=== PATIENT | male | born 1965 | race Caucasian/White ===

== ENCOUNTER → 2018-06-14 | Outpatient (CLI) | payer OTHER ==
--- NOTE | 2018-06-22 06:31 | REP ---
Clinical: Follow up abnormal lung findings. Comparison: 04/18/2018 (outside examination) Technique: Axial noncontrast images from the thoracic inlet to the upper abdomen with coronal and sagittal re-formations. Findings: Mild COPD/emphysematous changes and interstitial changes are appreciated bilaterally including minimal scarring at the lingula and medial right middle lobe. The previously identified subtle areas of acute pneumonitis involving the periphery of the right lower lobe as well as the lingula have resolved. No acute consolidation. No nodule or mass lesion. No pleural effusion. No pneumothorax. Tracheobronchial tree is patent. No obvious adenopathy. Mediastinum demonstrates relatively normal thoracic aorta, pulmonary vasculature and heart/pericardium. Osseous structures are intact without focal abnormality. Limited upper abdomen demonstrates normal bilateral adrenal glands. Impression: 1. Mild chronic COPD and minimal scattered interstitial changes. 2. Previously identified subtle areas of pneumonitis have resolved. 3. No acute mediastinal or pleuroparenchymal process appreciated. Electronically Signed by Wojciech Mcarthur MD 06/22/2018 06:22 A
== END ==
LOC: M RAD 10:54
PROVIDERS: ATTEND Physician Assistant
DX: J44.1 Chronic obstructive pulmonary disease with (acute) exacerbation (principal)

== ENCOUNTER → 2018-10-18 | Outpatient (CLI) | payer OTHER ==
--- NOTE | 2018-10-18 09:23 | REP ---
Clinical: Abdominal aortic aneurysm. Technique: Real time dumont scale and color evaluation using curved array transducer. Findings: Extensive atheromatous plaquing noted throughout the abdominal aorta. Proximal aorta measures 2.8 x 2.4 cm maximal diameter. Mid aorta measures 2.3 x 3.2 cm maximal diameter. A partially thrombosed distal abdominal aortic aneurysm measures 4.0 x 4.7 cm maximal AP and transverse diameter and 7.0 cm in craniocaudal length. Residual patent central lumen measures 1.5 x 1.4 cm maximal diameter. The aneurysm's proximal neck and relationship to the renal arteries cannot be evaluated due to interposed bowel gas, but distally appears to taper smoothly with the right and left common iliac arteries measuring 1.2 x 0.8 cm and 1.1 x 0.9 cm respectively. Impression: 1. Partially thrombosed distal abdominal aortic aneurysm as described above. 2. Severe atheromatous plaquing throughout the visualized aorta. Electronically Signed by Wojciech Mcarthur MD 10/18/2018 09:14 A
== END ==
LOC: M RAD 08:27
PROVIDERS: ATTEND Physician Assistant
DX: I71.4 Abdominal aortic aneurysm, without rupture (principal)

== ENCOUNTER → 2018-12-13 | Outpatient (CLI) | payer OTHER ==
--- NOTE | 2018-12-13 14:01 | REP ---
Clinical: Follow up abnormal findings. Technique: Axial noncontrast images from the thoracic inlet to the upper abdomen with coronal and sagittal re-formations. Comparison: 06/14/2018, 04/18/2018 Findings: Mild COPD/emphysematous changes are again appreciated along with minimal subpleural right lower lobe and right middle lobe scarring which remains stable. Previously noted subtle infiltrates on 04/18/2018 have completely resolved. No acute consolidation, significant nodule or mass lesion. No effusion. No pneumothorax. Tracheobronchial tree is patent. No significant adenopathy. Mediastinum demonstrates normal thoracic aorta, pulmonary vasculature and heart/pericardium. Evidence of prior coronary stenting. Surrounding musculoskeletal structures are intact. Impression: Stable mild COPD/emphysematous changes and minimal scarring. No acute process. Electronically Signed by Wojciech Mcarthur MD 12/13/2018 01:52 P
== END ==
LOC: M RAD 12:15
PROVIDERS: ATTEND Internal Medicine Pulmonary Disease
DX: R91.8 Other nonspecific abnormal finding of lung field (principal)

== ENCOUNTER → 2019-04-26 | Outpatient (CLI) | payer OTHER ==
--- NOTE | 2019-04-27 09:17 | REP ---
Clinical: Screening for abdominal aortic aneurysm. Comparison: 10/18/2018 Technique: Real time dumont scale ultrasound examination using curved array transducer. Findings: Significant atherosclerotic changes are appreciated. Infrarenal abdominal aortic aneurysm measures approximately 3.5 x 3.6 cm diameter and 6.3 cm in craniocaudal length tapering to normal at the level of the bifurcations common iliac arteries. No periaortic fluid collection identified. Origin of the aneurysm in relation to the renal arteries is incompletely evaluated due to interposed bowel gas. Proximal aorta 2.1 x 2.0 cm. Mid aorta (renal artery level) 2.2 x 2.2 cm. Mid aorta 2.7 x 2.4 cm. Distal aorta 3.5 x 3.6 cm. Right common iliac artery 1.1 cm maximal diameter. Left common iliac artery 1.0 cm maximal diameter. Impression: Infrarenal abdominal aortic aneurysm similar to prior examination. Significant diffuse atherosclerotic changes. Electronically Signed by Wojciech Mcarthur MD 04/27/2019 09:08 A
== END ==
LOC: M RAD 07:33
PROVIDERS: ATTEND Physician Assistant
DX: I71.4 Abdominal aortic aneurysm, without rupture (principal)

== ENCOUNTER → 2019-12-01 | Outpatient (CLI) | payer OTHER ==
--- NOTE | 2019-12-01 07:43 | REP ---
INDICATION: AAA WITHOUT RUPTURE COMPARISON: 04/26/2019, 10/18/2018 TECHNIQUE: Real time dumont scale ultrasound examination using curved array transducer. FINDINGS: Atherosclerotic changes of the aorta are again noted along with aneurysmal dilatation to the distal aorta measuring 4 cm maximal diameter and 8.3 cm in craniocaudal length originating below the level of the renal arteries and tapering to normal before bifurcation the iliac arteries. Proximal aorta: 2.6 x 2.8 cm Aorta at renal arteries: 2.5 x 2.4 cm Mid aorta: 3.4 x 3.3 cm Distal aorta: 4.0 x 4.0 cm Right common iliac artery: 1.1 cm Left common iliac artery: 1.1 cm IMPRESSION: Abdominal aortic aneurysm as described above which may be slightly increased in diameter as compared to prior examination. <Electronically signed by Wojciech Mcarthur > 12/01/19 [id number]
== END ==
LOC: M RAD 06:16
PROVIDERS: ATTEND Physician Assistant
DX: I71.4 Abdominal aortic aneurysm, without rupture (principal)

== ENCOUNTER → 2019-12-28 | Outpatient (CLI) | payer OTHER ==
--- NOTE | 2019-12-28 14:10 | REP ---
INDICATION: ABN FINDINGS OF LUNG FIELD. COMPARISON: 12/13/2018, 06/14/2018, 04/18/2018 CT TECHNIQUE: Noncontrast CT chest with coronal and sagittal reconstructions provided FINDINGS: The lung cedeño are hyperinflated. A 7 mm pleural based calcified granulomas again seen on image 26 in the posterior right upper lobe. Some minor apical pleural scarring is again seen. No pleural based mass. There is a smaller posterior right upper lobe pleural-based nodule midclavicular line posteriorly on image 32 without calcification, also stable. Some minor curvilinear fibrotic change in the inferior lingular segment at the left lung base anteriorly. No effusion, acute infiltrate, new nodule or mass. Some mild cylindrical bronchiectatic changes noted. Heart is not enlarged. There is no pathologic sized mediastinal, hilar, axillary or supraclavicular adenopathy. Thyroid lobes are symmetric. Tracheal airway shows small amount of mucus on either side at the carlo. The bone windows show the sternum, manubrium, medial clavicles, visible portions of scapulae, humeral heads and ribs grossly intact. The spine shows no compression deformity or destructive lesion. Upper abdomen shows aneurysmal dilatation of the proximal abdominal aorta at 3.4 cm AP dimension on the last image. This is incompletely evaluated. There is no evidence of leak or paraspinal hematoma but again, this is limited study. The gallbladder, adrenal glands, upper poles of the kidneys and spleen were unremarkable. No visible hepatic finding. IMPRESSION: 1. Old granulomas in the right lung, pleural based. In the upper lobe and with some minor fibrotic changes, underlying COPD, pulmonary artery hypertension and some bronchiectasis noted. Essentially stable examination. 2. No pathologic sized adenopathy. The solid organs in the upper abdomen were intact. 3. Bones without acute finding. 4. The upper abdominal aorta is seen only in part and its infrarenal portion is seen enlarging with the last image in the field of view showing it is 3.4 cm in AP diameter, this represents aneurysmal dilatation. This will need further evaluation if not done already elsewhere. <Electronically signed by Dominguez Cortez > 12/28/19 [id number]
== END ==
LOC: M RAD 13:17
PROVIDERS: ATTEND Physician Assistant
DX: R91.8 Other nonspecific abnormal finding of lung field (principal); J84.10 Pulmonary fibrosis, unspecified; J44.9 Chronic obstructive pulmonary disease, unspecified; I27.20 Pulmonary hypertension, unspecified; I77.819 Aortic ectasia, unspecified site

== ENCOUNTER → 2020-05-31 | Outpatient (CLI) | payer OTHER ==
--- NOTE | 2020-05-31 11:14 | REP ---
INDICATION: ABDOMINAL AORTIC ANEURYSM, WITHOUT RUPTURE. COMPARISON: No prior CTs for comparison. Prior abdominal aortic ultrasound of 12/01/2019 showed an infrarenal abdominal aortic aneurysm measuring 4 cm in AP dimension and 8.3 cm in length TECHNIQUE: Limited noncontrast enhanced helical CT FINDINGS: There are chronic changes in the lung bases similar to those seen on the 12/28/2019 CT of the chest. Limited evaluation of the abdominal aorta shows an infrarenal abdominal aortic aneurysm which has a maximal AP dimension of 4.5 cm outer wall to outer wall. There is a single focus of centrally displaced calcium anteriorly. This is seen in conjunction with circumferential calcific atherosclerotic change. There is no evidence of common iliac arterial ectasia. There is no abnormal Pita aortic density. Limited evaluation of the solid intra-organs and gallbladder show no gross abnormalities. Limited evaluation of the pancreas, adrenal glands, and kidneys show no gross abnormalities. The bowel loops and the mesenteries are within normal limits. There is no evidence of free fluid or free air. The imaged osseous structures are within normal limits for the patient's age. IMPRESSION: 1. Limited evaluation of the abdominal aorta shows an infrarenal abdominal aortic aneurysm as described above. 2. There is a single focus of centrally displaced calcium within the aneurysm and although this likely represents a small amount of calcium within a mural thrombus the exact etiology of this, including aortic dissection, cannot be stated with certainty without the administration of intravenous contrast. 3. Other findings and limitations as described above. <Electronically signed by Bjorn Myers > 05/31/20 [id number]
== END ==
LOC: M RAD 10:31
PROVIDERS: ATTEND Physician Assistant
DX: I71.4 Abdominal aortic aneurysm, without rupture (principal)

== ENCOUNTER → 2021-02-10 | Outpatient (CLI) | payer OTHER | LOC: M RAD 10:19 | PROVIDERS: ATTEND Physician Assistant | DX: F17.218 Nicotine dependence, cigarettes, with other nicotine-induced disorders (principal) ==

== ENCOUNTER → 2022-04-13 | Outpatient (CLI) | payer OTHER | LOC: M RAD 07:59 | PROVIDERS: ATTEND Physician Assistant | DX: Z12.2 Encounter for screening for malignant neoplasm of respiratory organs (principal); F17.218 Nicotine dependence, cigarettes, with other nicotine-induced disorders ==

== ENCOUNTER → 2023-03-02 | Outpatient (CLI) | payer MEDICARE, OTHER | LOC: M PLAIMG 11:10 | PROVIDERS: ATTEND Physician Assistant | DX: R91.8 Other nonspecific abnormal finding of lung field (principal); J44.9 Chronic obstructive pulmonary disease, unspecified ==

== ENCOUNTER → 2023-04-15 | Outpatient (REF) | payer MEDICARE, OTHER | LOC: M LAB REF 16:58 | PROVIDERS: ATTEND Internal Medicine Pulmonary Disease | DX: J43.1 Panlobular emphysema (principal) ==

== ENCOUNTER → 2024-04-14 | Outpatient (CLI) | payer MEDICARE, MEDICAID | LOC: M RAD 13:47 | PROVIDERS: ATTEND Physician Assistant | DX: Z87.892 Personal history of anaphylaxis (principal) ==